=== PATIENT | female | born 1945 | race Caucasian/White ===

== ENCOUNTER 2016-12-23 18:17 | Emergency (ER) | payer MEDICARE, OTHER ==
--- NOTE | 2016-12-25 00:03 | ER ---
ADMIT: 12/23/2016 RM/LOC: ER [facility] MR#: [id number] [address] [id number] [address] [place] [address] Emergency Room Report SEX: F AGE: 71 : 1945 DATE: 12/23/2016 TIME: 1816 Please refer to my T-sheet for complete H and P. HISTORY OF PRESENT ILLNESS: Briefly, the patient is a 71-year-old who comes in with watering of her left eye. She states her eyes do not look right in the mirror. She said it started at 7:00 this morning. No other injury. No headache. No weakness. No other complaints. PHYSICAL EXAMINATION: VITAL SIGNS: Stable except her blood pressure is up a little bit at 187/87. GENERAL: No acute distress. HEENT: Her right eye, she is unable to close this. The forehead is involved. The right face does have a droop. Her left eye has been little bit watering, but essentially normal. NEURO: Otherwise is essentially normal. EMERGENCY DEPARTMENT COURSE: Uneventful. ASSESSMENT: Right Chew's palsy. PLAN: Prednisone 20 daily for 7 days. Valtrex 1 g t.i.d. for 7 days. Lacri- Lube. Return if worse and follow up with Dr. Enriquez. Forest Guevaar MD/ modl JOB #: [id number] CC: Gus Manrique MD, Attending Physician Jose Enriquez MD, Family Physician MD Rory Hopson MD
== END 2016-12-23 19:52 | disposition home or self-care (01) ==
LOC: ER 18:17
DX: G51.0 Bell's palsy (principal)